=== PATIENT | female | born 1975 | race Caucasian/White ===

== ENCOUNTER 2020-08-17 15:36 | Emergency (ER) | payer OTHER ==
[2020-08-17] MEDS ORDERED: FENTANYL CITRATE INJ/PF 100 MCG/2 ML AMPUL IV ONE ×2 (16:12→16:36)
--- NOTE | 2020-08-17 16:25 | RADIOLOGY REPORT (SQ) ---
EXAM DESCRIPTION: HIP LEFT AP/LATERAL IMAGES COMPLETED DATE/TIME: 08/17/2020 4:02 pm REASON FOR STUDY: Positive deformity COMPARISON: None. NUMBER OF VIEWS: Two views. TECHNIQUE: AP and frog-leg view of the left hip. LIMITATIONS: None. FINDINGS: MINERALIZATION: Normal. PRIMARY HIP: Left total hip prosthesis is present. The femoral prosthesis is dislocated from the sahara tabular cup. No definite associated fracture. OPPOSITE HIP: No fracture or dislocation. No worrisome bone lesions. SOFT TISSUES: No findings. OTHER: No other significant finding. IMPRESSION: Dislocation of the left femoral prosthesis from the acetabular cup. COMMENT: Pelvic fractures are often occult on plain radiographs. If strong clinical suspicion for fracture, recommend CT or MR. TECHNICAL DOCUMENTATION: JOB ID: [id number] 2010 [employer]- All Rights Reserved Reading location - IP/workstation name: [email or web address]
--- NOTE | 2020-08-17 16:29 | ER Document Report ---
ED Hip Pain/Injury - General Chief Complaint: Hip Injury Stated Complaint: HIP PAIN Time Seen by Provider: 08/17/20 16:02 - HPI Notes: Patient is a 45-year-old female with a past medical history of a hip replacement in April of this year who presents with a left hip dislocation. Patient states she had the hip replaced due to arthritis. Patient states she also has a history of MS and had a gastric bypass surgery 2 weeks ago. Patient states that she was getting into her car and stepped wrong which caused her hip to dislocate. She denies any other injuries. She has had this hip dislocate several weeks ago, as well. - Related Data Allergies/Adverse Reactions: No Known Allergies Allergy (Verified 08/17/20 15:48) Home Medications: aubagio. pregabilin. vitamin Past Medical History - General Information source: Patient, Relative - Social History Smoking Status: Unknown if Ever Smoked Family History: Reviewed & Not Pertinent Patient has homicidal ideation: No Past Surgical History: Reports: Hx Abdominal Surgery - gastric bypass, Hx Orthopedic Surgery - left thr Review of Systems - Review of Systems Notes: CONSTITUTIONAL: No fever, fatigue or weight loss. SKIN: No rash. HENT: No congestion, ear pain, or sore throat. CARDIOVASCULAR: No chest pain or edema. RESPIRATORY: No cough, shortness of breath, congestion, or wheezing. GASTROINTESTINAL: No abdominal pain, nausea, vomiting GENITOURINARY: No dysuria. MUSCULOSKELETAL: Positive for left hip pain and dislocation NEUROLOGIC: No seizures. No headache, focal weakness or sensory changes. HEMATOLOGIC: No unusual bruising or bleeding. PSYCHIATRIC: No depression or anxiety. Physical Exam - Vital signs Vitals: Temp 98.8 F 08/17/20 15:48 - Notes Notes: VITAL SIGNS: Within normal limits. GENERAL: Acute distress due to pain HEAD: Normal with no signs of head trauma. EYES: PERRLA, EOMI, conjunctiva normal, no discharge. EARS: Hearing grossly intact. NOSE: Normal. NECK: Normal range of motion, no tenderness, supple, no lymphadenopathy, No adenopathy, no JVD. CHEST: Clear breath sounds bilaterally. No wheezes, rales, or rhonchi. CARDIAC: Regular rate and rhythm. VASCULAR: No Edema. Peripheral pulses normal and equal in all extremities. Strong dorsalis pedis pulse in the left leg. ABDOMEN: Normal and soft with no tenderness, no masses or pulsatile masses. Well healing surgical scars. GENITOURINARY: Normal, No tenderness MUSCULOSKELETAL: Left hip dislocation. Sensation intact in lower extremities. NEUROLOGICAL: Alert and oriented x 3. No focal sensory or strength deficits. Speech normal. Follows commands appropriately. PSYCHIATRIC: Normal Affect, judgement and mood. SKIN: Normal appearance with no rashes or lesions. Course - Re-evaluation Re-evalutation: 08/17/20 20:37 Patient has a left hip dislocation. Consent for sedation and hip reduction were obtained. I explained the procedure to the patient. Hip reduction was performed as described above. 2nd physician in room for procedural sedation procedure. Hip reduction was obtained and verified on postreduction x-ray. Patient was observed for a significant mount of time after the procedure. She is drinking in the room. She is alert and oriented. Patient was placed in a knee immobilizer. She already called her surgeon in [place] who performed the procedure to let him know that this happened twice. She will follow up with them. Patient was given strict return precautions including return of pain, any numbness, any other concerning symptoms. is here to take her home. She states she has oxycodone at home but does not like to take it unless really needed. - Vital Signs Vital signs: Temp Pulse Resp BP Pulse Ox 98.8 F 90 23 H 119/79 98 08/17/20 15:53 08/17/20 17:09 08/17/20 19:25 08/17/20 19:25 08/17/20 19:25 Procedures - Joint Reduction/Fracture Care Left Hip Time completed: 16:30 Consent obtained: Yes Conscious sedation: Yes Pre-procedure NV exam: Yes - Normal, Dorsalis pedis pulse strong, sensation intact Post-procedure NV exam: Yes - Normal, Dorsalis pedis pulse strong, sensation intact Post-reduction x-ray: Joint reduced, No fracture seen Reduction attempts: 3 Complications: No Discharge - Discharge Clinical Impression: Hip dislocation, left Qualifiers: Encounter type: initial encounter Qualified Code(s): S73.005A - Unspecified dislocation of left hip, initial encounter Condition: Stable Disposition: HOME, SELF-CARE Instructions: Dislocated Artificial Hip ([facility]), Post Sedation Instructions ([facility]) Additional Instructions: Please follow-up with your orthopedic surgeon. Return to the ER for any numbness, tingling, increased pain.
[2020-08-17] MEDS ORDERED: ETOMIDATE INJ/PF 20 MG/10 ML SDV IV ONE (16:35)
[2020-08-17] MEDS ORDERED: FENTANYL CITRATE INJ/PF 100 MCG/2 ML AMPUL ONE (16:51)
[2020-08-17] MEDS ORDERED: PROPOFOL INJ 200 MG/20 ML VIAL IV ONE (16:54)
--- NOTE | 2020-08-17 17:42 | RADIOLOGY REPORT (SQ) ---
EXAM DESCRIPTION: HIP LEFT AP/LATERAL IMAGES COMPLETED DATE/TIME: 08/17/2020 5:12 pm REASON FOR STUDY: hip reduction COMPARISON: Left hip radiographs earlier same day NUMBER OF VIEWS: Two views. TECHNIQUE: AP and cross-table views of the left hip. LIMITATIONS: None. FINDINGS: MINERALIZATION: Normal. PRIMARY HIP: There is been interval reduction of the left hip prosthesis dislocation. The femoral pr osthesis appears well seated in the acetabular cup. No definite associated fracture. OPPOSITE HIP: No fracture or dislocation. No worrisome bone lesions. SOFT TISSUES: No findings. OTHER: No other significant finding. IMPRESSION: Interval reduction of the left hip prosthesis dislocation. No definite associated fract ure. COMMENT: Pelvic fractures are often occult on plain radiographs. If strong clinical suspicion for fracture, recommend CT or MR. TECHNICAL DOCUMENTATION: JOB ID: [id number] 2010 [employer]- All Rights Reserved Reading location - IP/workstation name: [email or web address]
[2020-08-17] MEDS ORDERED: HYDROCODONE/ACETAMINOPHEN 5-325 MG TABLET PO ONE (19:10)
[2020-08-17 19:31] VITALS: BP 119/79
== END 2020-08-17 19:44 | disposition home or self-care (01) ==
LOC: ER 15:36
DX: T84.021A Dislocation of internal left hip prosthesis, initial encounter (principal); Y83.8 Other surgical procedures as the cause of abnormal reaction of the patient, or of later complication, without mention of misadventure at the time of the procedure; Z98.84 Bariatric surgery status; Z79.899 Other long term (current) drug therapy
CPT/HCPCS: 99285; 99152; 96374; 96375; 73502; 27265; J3010; J2704; J3490